=== PATIENT | female | born 1955 | race American Indian/Alaskan Native ===

== ENCOUNTER 2017-05-30 12:53 | Outpatient (CLI) | payer OTHER ==
--- NOTE | 2017-05-31 15:21 | Magnetic Resonance Report ---
BILATERAL BREAST MRI WITHOUT AND WITH CONTRAST: 05/30/17 12:53:00 CLINICAL: History of abnormal mammograms with bilateral asymmetries. COMPARISON:04/26/17 and 04/18/16 bilateral screening mammograms, 05/18/17 left mammogram and 05/16/16 right mammogram.. TECHNIQUE: Axial 1.0-mm T1 without, axial high resolution 2.0-mm T2 and axial 1.0-mm dynamic Vibrant high-resolution postcontrast T1 fat saturation sequences on a 1.5 Junie magnet. The examination was performed with an 8 channel dedicated [place] breast coil. Post processing with CAD and subtraction was performed on an [employer] workstation. 20 cc of Multihance was injected without incident for the contrast portion of the exam. Consent was obtained prior to the administration of the contrast. FINDINGS: Right: Mild background parenchymal enhancement. No mass or suspicious enhancement. A few tiny benign cysts and a subcentimeter lower inner benign intra-parenchymal lymph node. No suspicious right axillary or right internal mammary lymph nodes. Left: Mild background parenchymal enhancement. No mass or suspicious enhancement. A few tiny benign cysts. No suspicious left axillary or left internal mammary lymph nodes. IMPRESSION: Negative study. Recommend routine mammographic screening. BI-RADS 2 -- Benign
== END 2017-05-30 12:54 | disposition home or self-care (01) ==
LOC: SPVIMAG 12:53
PROVIDERS: ATTEND Surgery
DX: N60.01 Solitary cyst of right breast (principal); N60.02 Solitary cyst of left breast
CPT/HCPCS: 0159T; A9577; C8908; 77059